=== PATIENT | female | born 1980 | race Caucasian/White ===

== ENCOUNTER → 2017-12-17 | Outpatient (CLI) | payer OTHER | LOC: M RAD 14:13 | DX: Z34.81 Encounter for supervision of other normal pregnancy, first trimester (principal); Z3A.10 10 weeks gestation of pregnancy | CPT/HCPCS: 76801 ==

== ENCOUNTER 2018-07-06 01:36 | Inpatient (IN) | payer OTHER ==
[2018-07-06] MEDS: LACTATED RINGER'S 1000 ML IV (02:53)
[2018-07-06 02:57] LABS: HEMATOCRIT 38.9 % (36.0-47.0); MEAN CORPUSCULAR HGB CONC 33.4 g/dl (32.0-36.5); MEAN CORPUSCULAR VOLUME 86.8 fl (80.0-96.0); PLATELET COUNT, AUTOMATED 217 10^3/uL (150-450); RED BLOOD COUNT 4.48 10^6/uL (4.00-5.40); RED CELL DISTRIBUTION WIDTH 15.1 % (11.5-14.5); WHITE BLOOD COUNT 13.7 10^3/uL (4.0-10.0)
[2018-07-06] MEDS ORDERED: FENTANYL 2MCG/ML ROPIVACAINE 0.2% IN 0.9% NACL 200ML IVBAG As Ordered (03:32)
[2018-07-06] MEDS: FENTANYL/ROPIVACAINE/NACL BAG 200 ML EPIDURAL (04:00)
[2018-07-06] MEDS ORDERED: LACTATED RINGER'S 1000 ML IV (04:01)
[2018-07-06] MEDS ORDERED: EPIDURAL COMMENT XX (04:01)
[2018-07-06] MEDS ORDERED: EPIDURAL/PCA KEYS XX (04:01)
[2018-07-06] MEDS ORDERED: NALOXONE INJ 0.4 MG/1 ML VIAL (J2310) IV (04:01)
[2018-07-06] MEDS ORDERED: ePHEDrine SULFATE 25 MG/5 ML(5MG/ML) SYRINGE IV (04:01)
[2018-07-06] MEDS ORDERED: ONDANSETRON 4MG/2ML VIAL (J2405) IV (04:01)
[2018-07-06] MEDS ORDERED: REFRIGERATOR IV KEYS XX (04:01)
[2018-07-06] MEDS: LR 1,000 ML IV (04:15)
[2018-07-06] MEDS ORDERED: OXYTOCIN 30 UNITS IN 0.9% NaCl 500ML IV BAG (J2590) As Ordered (05:36)
[2018-07-06] MEDS: OXYTOCIN DRIP 30 UNITS in APPROPRIATE DILUENT 1 EA IV (05:39)
[2018-07-06] MEDS ORDERED: IBUPROFEN 800 MG TAB As Ordered (05:50)
[2018-07-06] MEDS ORDERED: DOCUSATE SODIUM 100 MG CAP PO (06:00)
[2018-07-06] MEDS ORDERED: DIBUCAINE 1% OINTMENT 30GM TOP (06:00)
[2018-07-06] MEDS ORDERED: IBUPROFEN 800 MG TAB PO (06:00)
[2018-07-06] MEDS ORDERED: RHOGAM 300 MCG (1500 IU) INJ (J2790) IM (06:00)
[2018-07-06] MEDS ORDERED: MEASLES,MUMPS,RUBELLA VACCINE INJ (MMR-II) (90707) SC (06:00)
[2018-07-06] MEDS ORDERED: ACETAMINOPHEN 500 MG TAB PO (06:00)
[2018-07-06] MEDS: diphenhydrAMINE INJ 50MG/ML VIAL (J1200) IV (07:18)
[2018-07-06] MEDS: PRENATAL VITAMINS CHEWABLE TABLET PO (10:15)
[2018-07-07] MEDS: PRENATAL VITAMINS CHEWABLE TABLET PO (09:47)
== END 2018-07-07 11:30 | disposition home or self-care (01) | DRG 775 ==
LOC: M LDO 01:36 → M LDI 02:40 → M OBS 09:28
PROVIDERS: Obstetrics & Gynecology
PROC: 10E0XZZ Delivery of Products of Conception, External Approach (ICD-10-PCS; principal; 2018-07-06)
PROC: 10907ZC Drainage of Amniotic Fluid, Therapeutic from Products of Conception, Via Natural or Artificial Opening (ICD-10-PCS; 2018-07-06)
DX: O48.0 Post-term pregnancy (principal); Z37.0 Single live birth; Z3A.40 40 weeks gestation of pregnancy; O34.211 Maternal care for low transverse scar from previous cesarean delivery; E66.9 Obesity, unspecified; Z68.38 Body mass index [BMI] 38.0-38.9, adult; O99.214 Obesity complicating childbirth; O09.523 Supervision of elderly multigravida, third trimester